=== PATIENT | female | born 2000 | race Caucasian/White ===

== ENCOUNTER 2023-09-02 20:31 | Emergency (ER) | payer OTHER, SELFPAY ==
[2023-09-02 20:57] VITALS: BP 131/79; PULSE 83; RESP 16; TEMP 36.8; O2SAT 98; BMI 21.0
--- NOTE | 2023-09-02 21:16 | ED.GENADULT ---
HPI - General Adult General Chief complaint: Skin/Abscess/Foreign Body Stated complaint: R toe infection Time Seen by Provider: 09/02/23 21:06 Source: patient Mode of arrival: ambulatory Limitations: no limitations History of Present Illness HPI narrative: 22-year-old female coming in today complaining of toe pain. Patient states that she had her nails done couple weeks ago and for the last week the big toe on the right has been swollen, tender and erythematous. Denies any other injury or concerns. Denies any systemic symptoms. Related Data Home Medications ?Medication ?Instructions ?Recorded ?Confirmed No Known Home Medications 09/02/23 09/02/23 Allergies Allergy/AdvReac Type Severity Reaction Status Date / Time No Known Drug Allergies Allergy Verified 09/02/23 21:01 Review of Systems Status of ROS: Reports: 6 or more systems reviewed and unremarkable except as noted in History and below Exam Narrative: Exam Narrative: Well-nourished well-developed patient in no acute distress. Alert and oriented. Answers questions appropriately. Mood and affect are appropriate. Thoughts are goal oriented and rational. No tangential or magical thinking noted. Patient speaks in full sentences without needing to catch her breath. HEENT: Normocephalic atraumatic. Extraocular muscles are intact. Conjunctivae are moist without any icterus noted. Moist mucous membranes. Extremities: Skin around the nail the big toe is indurated, erythematous warm to touch. There is no evidence of paronychia or abscess. Nail edges not appear ingrown Const: Vital Signs, click to edit/add: Vital Signs - 24 hr 09/02/23 20:57 Temperature 98.2 F Pulse Rate [Pulse Oximeter] 83 Respiratory Rate 16 Blood Pressure [Ri ght Upper Arm] 131/79 Pulse Oximetry 98 Oxygen Delivery Me thod Room Air Course Vital Signs Vital signs: Initial Vital Signs Temperature 98.2 F 09/02/23 20:57 Temperature Source Temporal Artery Scan 09/02/23 20:57 Pulse Rate 83 09/02/23 20:57 Respiratory Rate 16 09/02/23 20:57 Blood Pressure 131/79 09/02/23 20:57 Blood Pressure Mean 96 09/02/23 20:57 Blood Pressure Position Sitting 09/02/23 20:57 Pulse Oximetry 98 09/02/23 20:57 Oxygen Delivery Method Room Air 09/02/23 20:57 Vital Signs Temperature 98.2 F 09/02/23 20:57 Pulse Rate 83 09/02/23 20:57 Respiratory Rate 16 09/02/23 20:57 Blood Pressure 131/79 09/02/23 20:57 Pulse Oximetry 98 09/02/23 20:57 Oxygen Delivery Method Room Air 09/02/23 20:57 Temperature 98.2 F 09/02/23 20:57 Pulse Rate 83 09/02/23 20:57 Respiratory Rate 16 09/02/23 20:57 Blood Pressure 131/79 09/02/23 20:57 Pulse Oximetry 98 09/02/23 20:57 Oxygen Delivery Method Room Air 09/02/23 20:57 Medical Decision Making MDM Narrative Medical decision making narrative: 22-year-old female with cellulitis the big toe. Will treat with Keflex q.i.d. for the next week. Follow-up with primary care as needed. Discharge Plan Discharge Clinical Impression: Cellulitis Patient Disposition: Home, Self-Care Condition: Stable Additional Instructions: Take all antibiotics as prescribed. Okay to do warm soaks of the toe. Follow-up with your primary care provider if you are not improving over the next 3 or so days. Keflex 500 mg p.o. q.i.d. for 7 days sent to [facility] Prescriptions: No Action No Known Home Medications Stand Alone Forms: [facility] Info Instructions
== END 2023-09-02 21:41 | disposition home or self-care (01) ==
LOC: ED 21:26
PROVIDERS: Emergency Provider Family Medicine
DX: L03.031 Cellulitis of right toe (principal)
CPT/HCPCS: 99283